=== PATIENT | female | born 1970 | race Caucasian/White ===

== ENCOUNTER 2018-08-01 15:12 | Emergency (ER) | payer OTHER ==
[~2018-08-01] VITALS: Ht 160 cm; Wt 63.5 kg
[~2018-08-01 15:12] MED LIST: CALCIUM 600 +1 EAC1 PO; NORCO 5-325 TA1 EACH PO; TESSALON PERLE100 MG PO
[2018-08-01 15:25] VITALS: BP 151/85
[2018-08-01] MEDS ORDERED: AMOXICILLIN 50500 MG PO (15:28)
[2018-08-01] MEDS ORDERED: ANDRODERM1 EAC2 PO (15:28)
[2018-08-01] MEDS ORDERED: PROGESTERO50 MG/1 M3 PO (15:28)
== END 2018-08-01 16:11 | disposition home or self-care (01) ==
LOC: M.ERS 15:12
DX: Z71.1 Person with feared health complaint in whom no diagnosis is made (principal); Z88.2 Allergy status to sulfonamides